=== PATIENT | female | born 1940 | race Caucasian/White ===

== ENCOUNTER 2019-02-06 12:07 | Inpatient (IN) | payer MEDICARE, MEDICAID ==
[~2019-02-06] VITALS: Ht 167.6 cm; Wt 82.6 kg
[2019-02-06] MEDS ORDERED: SOD CHLORIDE 0.9% 500 ML IV STA (12:28)
[2019-02-06] MEDS ORDERED: BISACODYL 10 MG SUPP PR ONE (12:30)
[2019-02-06] MEDS ORDERED: LACTULOSE 30ML CUP PO ONE (12:30)
[2019-02-06] MEDS ORDERED: LOSA50TA14 ORAL (14:14)
[2019-02-06] MEDS ORDERED: [UNRECOGNIZED DRUG - CODE] ORAL (14:14)
[2019-02-06] MEDS ORDERED: GABA100C14 ORAL (14:14)
[2019-02-06] MEDS ORDERED: POTA8CAP PO (14:14)
[2019-02-06] MEDS ORDERED: METO-429 ORAL (14:14)
[2019-02-06] MEDS ORDERED: CLON0.5T14 ORAL (14:14)
[2019-02-06] MEDS ORDERED: DIGO125T ORAL (14:14)
[2019-02-06] MEDS ORDERED: SAN30GM SUBDERMAL (14:14)
[2019-02-06] MEDS ORDERED: LACHYD12 SUBDERMAL (14:14)
[2019-02-06] MEDS ORDERED: MUPI22OI2 SUBDERMAL (14:14)
[2019-02-06] MEDS ORDERED: FURO40TA4 ORAL (14:14)
[2019-02-06] MEDS ORDERED: WARF3TAB ORAL (14:14)
[2019-02-06] MEDS ORDERED: GLIM2TAB ORAL (14:14)
[2019-02-06] MEDS ORDERED: ACET-141 PO (14:17)
--- NOTE | 2019-02-06 14:59 | ERD ---
ER Documentation Chief Complaint Chief Complaint HIGH BLOOD PRESSURE; BLURRY EYES; CONSTIPATED; FEELS DIZZY HPI Patient is a 78-year-old female with atrial fibrillation, coronary disease, CHF, hypertension, and diabetes who presents for dizziness. The patient was sent by the [facility] prevention center where she was being treated for a left foot ulcer. Blood pressure was elevated and she was feeling dizzy and constipated so she was sent to the ER. She feels an irregular heartbeat and does have a history of atrial fibrillation. She has blurry vision and feels dizzy. The symptoms started last night. She has no slurred speech and has had no treatment as of yet. Upon review of old medical records this is the patient's first visit to the emergency department. ROS All systems reviewed and are negative except as per history of present illness. Medications Home Meds Reported Medications Acetaminophen* (Acetaminophen*) 500 MG Extra Strength Tablet, 1000 MG PO BID PRN for PAIN, TAB 02/06/19 Clonazepam* (Clonazepam*) 0.5 Mg Tablet, 1 TAB ORAL QHS 02/06/19 Ammonium Lactate* (Lac-Hydrin* 12% (225gm)) 1 Applic Lotion, 1 APPLIC SUBDERMAL DAILY 02/06/19 Levothyroxine Sodium (Levo-T) 100 Mcg Tablet, 1 TAB ORAL DAILY 02/06/19 Losartan Potassium* (Losartan Potassium*) 50 Mg Tablet, 1 TAB ORAL DAILY 02/06/19 Gabapentin* (Gabapentin*) 100 Mg Capsule, 1 CAP ORAL DAILY 02/06/19 Warfarin Sodium (Warfarin Sodium) 3 Mg Tablet, 1 TAB ORAL DAILY 02/06/19 Glimepiride* (Glimepiride*) 2 Mg Tablet, 1 TAB ORAL DAILY 02/06/19 Mupirocin* (Bactroban*) 2% -22 Gram Oint...g., 1 APPLIC SUBDERMAL DAILY 02/06/19 Collagenase* (Santyl*) 30 Gm Oint..gm., 1 APPLIC SUBDERMAL DAILY 02/06/19 Potassium Chloride* (Potassium Chloride*) 8 Meq Capsule.er, 8 MEQ PO DAILY, CAP 02/06/19 Furosemide* (Furosemide*) 40 Mg Tablet, 1 TAB ORAL DAILY 02/06/19 Metoprolol Tartrate* (Lopressor*) 50 Mg Tab, 1 TAB ORAL DAILY 02/06/19 Digoxin* (Digitek*) 125 Mcg Tablet, 1 TAB ORAL DAILY 02/06/19 Allergies Allergies: Coded Allergies: codeine (Verified Adverse Reaction, Intermediate, ANXIETY, 02/06/19) PMhx/Soc History of Surgery: Yes (mitral & aortic valve replacement '10, LT mastectomy, appendectomy) Anesthesia Reaction: No Hx Neurological Disorder: No Hx Respiratory Disorders: No Hx Cardiac Disorders: Yes (CHF, HTN, A-FIB) Hx Psychiatric Problems: No Hx Miscellaneous Medical Probl: Yes (GERD, OA, MELANOMA) Hx Alcohol Use: No Hx Substance Use: No Hx Tobacco Use: No Smoking Status: Never smoker FmHx Family History: diabetes Physical Exam Vitals Vital Signs Date Temp Pulse Resp B/P (MAP) Pulse Ox O2 O2 Flow FiO2 Time Delivery Rate 02/06/19 98.2 88 17 149/90 97 Room Air 14:00 (109) 02/06/19 98.2 74 20 157/88 97 Room Air 12:22 (111) 02/06/19 98.2 82 20 148/83 96 12:10 (104) Physical Exam Const: No acute distress Head: Atraumatic Eyes: Normal Conjunctiva ENT: Normal External Ears, Nose and Mouth. Neck: Full range of motion. No meningismus. Resp: Clear to auscultation bilaterally Cardio: Regular rate and rhythm, no murmurs Abd: Soft, non tender, non distended. Normal bowel sounds Skin: No petechiae or rashes Back: No midline or flank tenderness Ext: No cyanosis, or edema Neur: Awake and alert Psych: Normal Mood and Affect Result Diagram: 02/06/19 1247 02/06/19 1247 Results 24 hrs Laboratory Tests Test 02/06/19 12:47 02/06/19 12:50 White Blood Count 5.2 10^3/ul Red Blood Count 3.93 10^6/ul Hemoglobin 12.1 g/dl Hematocrit 37.9 % Mean Corpuscular Volume 96.4 fl Mean Corpuscular Hemoglobin 30.8 pg Mean Corpuscular Hemoglobin Concent 31.9 g/dl Red Cell Distribution Width 12.5 % Platelet Count 169 10^3/UL Mean Platelet Volume 10.1 fl Immature Granulocytes % 0.200 % Neutrophils % 61.0 % Lymphocytes % 21.2 % Monocytes % 15.8 % Eosinophils % 1.0 % Basophils % 0.8 % Nucleated Red Blood Cells % 0.0 /100WBC Immature Granulocytes # 0.010 10^3/ul Neutrophils # 3.2 10^3/ul Lymphocytes # 1.1 10^3/ul Monocytes # 0.8 10^3/ul Eosinophils # 0.1 10^3/ul Basophils # 0.0 10^3/ul Nucleated Red Blood Cells # 0.0 10^3/ul Prothrombin Time 24.0 Sec Prothrombin Time Ratio 1.9 INR International Normalized Ratio 2.14 Activated Partial Thromboplast Time 35.7 Sec Sodium Level 138 mmol/L Potassium Level 4.4 mmol/L Chloride Level 101 mmol/L Carbon Dioxide Level 26 mmol/L Anion Gap 11 Blood Urea Nitrogen 19 mg/dl Creatinine 0.66 mg/dl Est Glomerular Filtrat Rate mL/min mL/min Glucose Level 127 mg/dl Hemoglobin A1c 6.5 % Calcium Level 9.9 mg/dl Troponin I < 0.012 ng/ml Triglycerides Level 125 mg/dl Cholesterol Level 159 mg/dl LDL Cholesterol, Calculated 91 mg/dl HDL Cholesterol 43 mg/dl Cholesterol/HDL Ratio 3.6 RATIO Bedside Glucose 125 mg/dL Current Medications Medications Dose Sig/Alfredo Start Time Status Last (Trade) Ordered Route PRN Stop Time Admin Dose Reason Admin Sodium 500 ml @ Q1H STAT 02/06/19 DC 02/06/19 Chloride 500 mls/hr IV 12:28 12:45 02/06/19 13:27 Lactulose 20 gm ONCE ONCE 02/06/19 DC 02/06/19 (Enulose) PO 12:30 12:45 02/06/19 12:31 Bisacodyl 10 mg ONCE ONCE 02/06/19 DC 02/06/19 (Dulcolax MI 12:30 12:45 Supp) 02/06/19 12:31 Ondansetron 4 mg ER BRIDGE 02/06/19 HCl (Zofran PRN IV 15:00 Inj) NAUSEA/VOMITI 02/07/19 14:59 NG 650 mg ER BRIDGE 02/06/19 Acetaminophen PRN PO 15:00 (Tylenol .MILD PAIN 02/07/19 14:59 Tab) 1-3 OR TEMP Procedures/MDM CT brain read by radiology. CT abdomen pelvis read by radiology. Chest x-ray s hows possible pericardial effusion per radiology. EKG read by me: Rate/Rhythm: Atrial fibrillation with a rate of 66 Intervals: Normal Impression: A. fib with a controlled rate and without ischemia Patient is a 78-year-old female presents with dizziness. The patient was given lactulose and Dulcolax suppository with good result for constipation. However I am concerned about her dizziness and given the fact that her chest x-ray was read by radiology as possible pericardial effusion. I doubt stroke at this time. I doubt intercranial hemorrhage or mass. The patient will be admitted to the care of Dr. Mark from the panel team to a telemetry observation bed. She will likely need echocardiogram while in the hospital to rule out per cardial effusion. Departure Diagnosis: Primary Impression: Cardiomegaly Additional Impressions: Dizziness Abdominal pain Abdominal location: generalized Qualified Codes: R10.84 - Generalized abdominal pain Constipation Constipation type: unspecified constipation type Qualified Codes: K59.00 - Constipation, unspecified Condition: MONET Ann MD Feb 06, 2019 14:59
[2019-02-06] MEDS ORDERED: ONDANSETRON 4 MG INJ IV PRN ×2 (15:00→16:00)
[2019-02-06] MEDS ORDERED: ACETAMINOPHEN 325 MG TAB PO PRN (15:00)
--- NOTE | 2019-02-06 15:53 | HP ---
Date/Time of Note Date/Time of Note DATE: 02/06/19 TIME: 15:44 Assessment/Plan VTE Prophylaxis SCD applied (from Nsg): Yes Pharmacological prophylaxis: LMWH Lines/Catheters IV Catheter Type (from Nrsg): Saline Lock Assessment/Plan Hospital Course Assessment and plan 1. Dizziness. Follow-up on echocardiogram. Carotid Doppler to be checked. CT scan showed no acute intracranial hemorrhage, transcortical infarction or mass-effect. Check orthostatic blood pressures. 2. Suspect pericardial effusion. Echocardiogram ordered. Will get chipper machine operator to follow. Of note chest x-ray did show Moderate to marked enlargement of the cardiac silhouette with a water bottle configuration. Rule out pericardial effusion. 3. A. fib. Monitor on telemetry. Continue on digoxin, warfarin, beta-naren 4. Hypertension. Will continue on antihypertensives. Adjust as needed 5. History of neuropathy. Continue Neurontin. 6. Diabetes. Continue on home regimen. Discussed POC with Dr. Koch Result Diagram: 02/06/19 1247 02/06/19 1247 Results 24hrs Laboratory Tests Test 02/06/19 12:47 02/06/19 12:50 White Blood Count 5.2 Red Blood Count 3.93 L Hemoglobin 12.1 Hematocrit 37.9 Mean Corpuscular Volume 96.4 Mean Corpuscular Hemoglobin 30.8 Mean Corpuscular Hemoglobin Concent 31.9 L Red Cell Distribution Width 12.5 Platelet Count 169 Mean Platelet Volume 10.1 Immature Granulocytes % 0.200 Neutrophils % 61.0 Lymphocytes % 21.2 Monocytes % 15.8 H Eosinophils % 1.0 Basophils % 0.8 Nucleated Red Blood Cells % 0.0 Immature Granulocytes # 0.010 Neutrophils # 3.2 Lymphocytes # 1.1 Monocytes # 0.8 Eosinophils # 0.1 Basophils # 0.0 Nucleated Red Blood Cells # 0.0 Prothrombin Time 24.0 H Prothrombin Time Ratio 1.9 INR International Normalized Ratio 2.14 Activated Partial Thromboplast Time 35.7 H Sodium Level 138 Potassium Level 4.4 Chloride Level 101 Carbon Dioxide Level 26 Anion Gap 11 Blood Urea Nitrogen 19 Creatinine 0.66 Est Glomerular Filtrat Rate mL/min Glucose Level 127 Hemoglobin A1c 6.5 H Calcium Level 9.9 Troponin I < 0.012 Triglycerides Level 125 Cholesterol Level 159 LDL Cholesterol, Calculated 91 HDL Cholesterol 43 Cholesterol/HDL Ratio 3.6 Bedside Glucose 125 HPI/ROS Admit Date/Time Admit Date/Time Hx of Present Illness This is a 78-year-old female with history of CHF, hypertension, diabetes, MVR/TVR in 2009, skin cancer, left breast cancer status post radiation 2007, who is being admitted to the hospital due to reports of dizziness and some chest palpitations. 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 She reports that when she was there she started to feel little bit dizzy. She denies any chest pain or shortness of breath. She was advised to go to the ER for further evaluation. She does report that for the past couple days prior to this admission she had been feeling "off". She reports that she had been feeling dizzy at times. She denies any other associated symptoms besides the dizziness and sometimes heart palpitations. We will evaluate her for the aformentiond issues. ROS 12 point review of systems obtained entirely negative except as mentioned in the history of present illness PMH/Family/Social Past Medical History Medical/surgical history 1. CHF 2. Hypertension 3. Audio megaly 4 prediabetes 5. MVR/TVR in 2009, 6. Skin cancer 7. Left breast cancer status post radiation in 2007 8. Gallstones Medications Current Medications Ondansetron HCl (Zofran Inj) 4 mg ER BRIDGE PRN IV NAUSEA/VOMITING; Start 02/06/19 at 15:00; Stop 02/07/19 at 14:59 Acetaminophen (Tylenol Tab) 650 mg ER BRIDGE PRN PO .MILD PAIN 1-3 OR TEMP; Start 02/06/19 at 15:00; Stop 02/07/19 at 14:59 Coded Allergies: codeine (Verified Adverse Reaction, Intermediate, ANXIETY, 02/06/19) Family History Significant Family History: other (reports stroke on father side) Social History Alcohol Use: none Smoking Status: Never smoker Drug Use: none Exam/Review of Systems Vital Signs Vitals Vital Signs Date Temp Pulse Resp B/P (MAP) Pulse Ox O2 O2 Flow FiO2 Time Delivery Rate 02/06/19 98.2 88 17 149/90 97 Room Air 14:00 (109) Exam Constitutional: alert, oriented Psych: nl mood/affect Head: normocephalic Respiratory: diminished breath sounds Cardiovascular: murmurs/extra sounds, other (afib) Gastrointestinal: soft, non-tender Musculoskeletal: swelling (ble) Neurological: WELLNESS RN II-XII intact, nl mental status, nl speech Skin: other (left foot ulcer) ROBBIE VILLARREAL NP Feb 06, 2019 15:53
[2019-02-06] MEDS ORDERED: MAGNESIUM HYDROXIDE 30ML CUP PO PRN (16:00)
[2019-02-06] MEDS ORDERED: NACL 0.9% 3 ML SYG IV SCH (16:00)
[2019-02-06] MEDS ORDERED: DEXTROSE 50% 50 ML SYRINGE IV PRN ×2 (17:00)
[2019-02-06] MEDS ORDERED: GLUCOSE GEL 15 GRAM TUBE BUCCAL PRN (17:00)
[2019-02-06] MEDS ORDERED: GLUCAGON 1 MG INJ IM PRN (17:00)
[2019-02-06] MEDS ORDERED: GLUCOSE GEL 15 GRAM TUBE PO PRN ×2 (17:00)
[2019-02-06 17:36] VITALS: Ht 167.6 cm; Wt 82.6 kg
[2019-02-06 17:48] VITALS: BP 147/76; PULSE 83; RESP 18
[2019-02-06] MEDS: ACCU-CHEK XX SCH ×2 (18:09→21:56)
[2019-02-06 19:21] VITALS: BP 124/59; PULSE 99; RESP 18
[2019-02-06] MEDS: ACETAMINOPHEN 325 MG TAB PO PRN (21:47)
[2019-02-06] MEDS: WARFARIN 3 MG TAB PO SCH (21:48)
[2019-02-06] MEDS: FAMOTIDINE 20 MG INJ IV SCH (21:48)
[2019-02-06] MEDS: METOPROLOL 50 MG TAB PO SCH (22:46)
[2019-02-06 23:00] VITALS: BP 119/59; PULSE 76; RESP 20
[2019-02-07] VITALS (9 sets, daily range): BP systolic 111–159; BP diastolic 54–82; PULSE 65–90; RESP 18–20
[2019-02-07] MEDS ORDERED: CEFTRIAXONE 1 GM/50 ML (PMX) 50 ML IVPB SCH ×2 (02:30→22:00)
[2019-02-07] MEDS: LEVOTHYROXINE 100 MCG TAB PO SCH (05:23)
[2019-02-07] MEDS: ACCU-CHEK XX SCH ×4 (07:25→21:47)
[2019-02-07] MEDS ORDERED: ENOXAPARIN 40 MG/0.4 ML SYG SC SCH (09:00)
[2019-02-07] MEDS ORDERED: METOPROLOL 50 MG TAB PO SCH (09:00)
[2019-02-07] MEDS: DIGOXIN 0.125 MG TAB PO SCH (09:10)
[2019-02-07] MEDS: METOPROLOL 50 MG TAB PO SCH ×2 (09:11→21:27)
[2019-02-07] MEDS: WARFARIN 3 MG TAB PO SCH (09:11)
[2019-02-07] MEDS: FAMOTIDINE 20 MG INJ IV SCH (09:12)
[2019-02-07] MEDS: FUROSEMIDE 40 MG TAB PO SCH (09:12)
[2019-02-07] MEDS: LOSARTAN 50 MG TAB PO SCH (09:12)
[2019-02-07] MEDS: GLIMEPIRIDE 2 MG TAB PO SCH (09:30)
--- NOTE | 2019-02-07 10:23 | RADRPT ---
Echocardiogram Report Patient Name: Manju MCGOVERN ID: [id number] : 109 (78y 10m)Study Date: 02/06/2019 3:38:06 PM Gender: FAccession #: [id number] Tech: Balwinder Staton [facility] Location: [facility] Ref.Physician: ROBBIE VILLARREAL Height(Cm): BSA: Weight(Kg): Quality: AdequateOrder Physician: ROBBIE VILLARREAL Account #: Procedures: Echocardiographic Report: Transthoracic echocardiogram with complete 2D, M-Mode, and doppler examination. Indications: R/o Pericardial Effusion. Measurements: 2D/M Mode Doppler Measurement Value Normal Range Measurement Value Normal Range LVIDd 2D 5.1 [ 3.8 - 5.2 ] cm AV Mean Sami 2.2 [ 70.0 - 90.0 ] cm/sec LVIDs 2D 3.3 [ 2.2 - 3.5 ] cm AV Mean PG 23.0 [ 2.0 - 4.0 ] mmHg LVPWd 2D 1.1 [ 0.6 - 0.9 ] cm AV VTI 76.0 cm IVSd 2D 1.1 [ 0.6 - 0.9 ] cm LVOT Peak Sami 1.0 [ 70.0 - 110.0 ] cm/sec AoR Diam 2D 3.1 [ 2.3 - 3.1 ] cm LVOT Peak PG 4.0 [ 2.0 - 6.0 ] mmHg EDV 2D 123.0 [ 46.0 - 106.0 ] ml MV E Peak Sami 2.1 [ 60.0 - 130.0 ] cm/sec ESV 2D 44.1 [ 14.0 - 42.0 ] ml MV Peak Sami 2.3 [ 60.0 - 130.0 ] cm/sec EF 2D 64.1 [ 54.0 - 74.0 ] percent MV Peak PG 22.0 [ 1.0 - 10.0 ] mmHg LA Dimen 2D 5.4 [ 2.7 - 3.8 ] cm MV Mean Sami 1.0 cm/sec MV Mean PG 6.0 mmHg MV Decel Time 310 [ 104 - 258 ] msec MV VTI 52.8 cm TR Peak Sami 3.5 [ 100.0 - 280.0 ] cm/sec TR Peak PG 50.0 mmHg Findings: Left Ventricle: Normal left ventricular systolic function. Normal left ventricular cavity size. Normal left ventricular wall thickness. Ejection fraction is visually estimated at 55 %. Right Ventricle: Moderate enlargement of right ventricle. Mild right ventricular hypokinesis. Left Atrium: There is severe enlargement of left atrium. Right Atrium: There is severe enlargement of right atrium. Mitral Valve: Mitral Valve Bio Prosthesis. Mitral valve Max Velocity 2.32 m/sec. MaxPG 22.00 mmHg. MeanPG 6.00 mmHg. Aortic Valve: Aortic Valve Bio Prosthesis. Moderate aortic stenosis. Aortic valve Max velocity 3.54 m/sec. Max PG 50.20 mmHg. Tricuspid Valve: The estimated Peak RVSP is 64 mmHg. There is severe tricuspid regurgitation. Pericardium: Normal pericardium with no significant pericardial effusion. Left pleural effusion seen. Aorta: Normal aortic root. IVC: Dilated IVC with poor respiratory collapse consistent with elevated right atrial pressure. Conclusions: Normal left ventricular systolic function. Normal left ventricular cavity size. Normal left ventricular wall thickness. Ejection fraction is visually estimated at 55 %. Moderate enlargement of right ventricle. Mild right ventricular hypokinesis. Mitral Valve Bio Prosthesis. Mitral valve Max Velocity 2.32 m/sec. MaxPG 22.00 mmHg. MeanPG 6.00 mmHg. Aortic Valve Bio Prosthesis. Moderate aortic stenosis. Aortic valve Max velocity 3.54 m/sec. Max PG 50.20 mmHg. Severe tricuspid regurgitation. Left and right atria are extremely large. Moderate pulmonary hypertension with estimated Peak RVSP 64 mmHg based on RA pressure of 15 mmHg. Electronically Signed By: Alden Sánchez 2019-02-07 10:22:41 PDT
--- NOTE | 2019-02-07 12:10 | CONS ---
Assessment/Plan Assessment/Plan Hospital Course (Demo Recall) Dizziness: By history, orthostatic. No renal dysfunction to suggest dehydration. Her exam is difficult as she has severe TR and RV dysfunction so JVP will always be elevated. 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 Severe TR Chronic afib on coumadin chronic diastolic/valvular CHF pulmonary hypertension HTN DM liver cirrhosis: ?from TR/right heart failure -check orthostatics -PT -monitor on tele one more day -home meds including: -coumadin, goal INR 2-3 losartan 50mg -lasix 40mg -digoxin 125mcg -metoprolol 50mg BID Consultation Date/Type/Reason Admit Date/Time Date of Consultation: Feb 07, 2019 Type of Consult Cardiology Reason for Consultation Cardiomegaly on CXR concerning for pericardial effusion and complex cardiac history Requesting Provider: ROBBIE VILLARREAL NP Date/Time of Note DATE: 02/07/19 TIME: 11:58 Hx of Present Illness 78 yo F with a h/o bioprosthetic MVR/AVR 2009, chronic afib on coumadin, chronic diastolic/valvular CHF, pulmonary hypertension, HTN, DM, liver cirrhosis, who presented from wound clinic due to dizziness. She is being treated for a left leg wound. She had mentioned that she has dizziness and she was asked to come in for evaluation. In the ED she was noted to have a large globular heart on CXR concerning for pericardial effusion for which cardiology was consulted. She notes that she has been having episodes of dizziness the past few days which occur only if she stands up to go to the restroom but never at rest or with activity. She does not get dizzy every time she stands up however. Otherwise she notes her BP has been higher than usual in the 140s. No chest pain or SOB. No syncope. She follows up with a marshmallow machine worker in [place] usually. per hPI Past Medical History per hPI Home Meds Reported Medications Acetaminophen* (Acetaminophen*) 500 MG Extra Strength Tablet, 1000 MG PO BID PRN for PAIN, TAB 02/06/19 Clonazepam* (Clonazepam*) 0.5 Mg Tablet, 1 TAB ORAL QHS 02/06/19 Ammonium Lactate* (Lac-Hydrin* 12% (225gm)) 1 Applic Lotion, 1 APPLIC SUBDERMAL DAILY 02/06/19 Levothyroxine Sodium (Levo-T) 100 Mcg Tablet, 1 TAB ORAL DAILY 02/06/19 Losartan Potassium* (Losartan Potassium*) 50 Mg Tablet, 1 TAB ORAL DAILY 02/06/19 Gabapentin* (Gabapentin*) 100 Mg Capsule, 1 CAP ORAL DAILY 02/06/19 Warfarin Sodium (Warfarin Sodium) 3 Mg Tablet, 1 TAB ORAL DAILY 02/06/19 Glimepiride* (Glimepiride*) 2 Mg Tablet, 1 TAB ORAL DAILY 02/06/19 Mupirocin* (Bactroban*) 2% -22 Gram Oint...g., 1 APPLIC SUBDERMAL DAILY 02/06/19 Collagenase* (Santyl*) 30 Gm Oint..gm., 1 APPLIC SUBDERMAL DAILY 02/06/19 Potassium Chloride* (Potassium Chloride*) 8 Meq Capsule.er, 8 MEQ PO DAILY, CAP 02/06/19 Furosemide* (Furosemide*) 40 Mg Tablet, 1 TAB ORAL DAILY 02/06/19 Metoprolol Tartrate* (Lopressor*) 50 Mg Tab, 1 TAB ORAL DAILY 02/06/19 Digoxin* (Digitek*) 125 Mcg Tablet, 1 TAB ORAL DAILY 02/06/19 Medications Current Medications Ondansetron HCl (Zofran Inj) 4 mg ER BRIDGE PRN IV NAUSEA/VOMITING; Start 02/06/19 at 15:00; Stop 02/07/19 at 14:59 IV Flush (NS 3 ml) 3 ml PER PROTOCOL IV ; Start 02/06/19 at 16:00 Ondansetron HCl (Zofran Inj) 4 mg Q6H PRN IV NAUSEA/VOMITING; Start 02/06/19 at 16:00 Acetaminophen (Tylenol Tab) 650 mg Q6H PRN PO .PAIN 1-3 OR TEMP Last administe red on 02/06/19at 21:47; Admin Dose 650 MG; Start 02/06/19 at 16:00 Magnesium Hydroxide (Milk Of Mag) 30 ml DAILY PRN PO .CONSTIPATION; Start 02/06/19 at 16:00 Famotidine (Pepcid Iv) 20 mg Q12 IV Last administered on 02/07/19at 09:12; Admin Dose 20 MG; Start 02/06/19 at 21:00 Enoxaparin Sodium (Lovenox) 40 mg DAILY SC Last administered on 02/07/19 09:28; Admin Dose 40 MG; Start 02/07/19 at 09:00 Warfarin Sodium (Coumadin) 3 mg DAILY PO Last administered on 02/07/19 09:11; Admin Dose 3 MG; Start 02/06/19 at 16:00 Furosemide (Lasix) 40 mg DAILY PO Last administered on 02/07/19 09:12; Admin Dose 40 MG; Start 02/07/19 at 09:00 Glimepiride (Amaryl) 2 mg DAILY PO Last administered on 02/07/19 09:30; Admin Dose 2 MG; Start 02/07/19 at 09:00 Diagnostic Test (Pha) (Accu-Chek) 1 ea AC MEALS AND BEDTIME XX Last administered on 02/07/19 07:25; Admin Dose 1 EA; Start 02/06/19 at 17:25 Digoxin (Digoxin) 0.125 mg DAILY PO Last administered on 02/07/19 09:10; Admin Dose 0.125 MG; Start 02/07/19 at 09:00 Levothyroxine Sodium (Synthroid) 100 mcg DAILY@06 PO Last administered on 02/07/19 05:23; Admin Dose 100 MCG; Start 02/07/19 at 06:00 Losartan Potassium (Cozaar) 50 mg DAILY PO Last administered on 02/07/19 09:12; Admin Dose 50 MG; Start 02/07/19 at 09:00 Miscellaneous Information 1 ea NOTE XX ; Start 02/06/19 at 17:00 Glucose (Glutose) 15 gm Q15M PRN PO DECREASED GLUCOSE; Start 02/06/19 at 17:00 Glucose (Glutose) 22.5 gm Q15M PRN PO DECREASED GLUCOSE; Start 02/06/19 at 17: 00 Dextrose (D50w Syringe) 25 ml Q15M PRN IV DECREASED GLUCOSE; Start 02/06/19 at 17:00 Dextrose (D50w Syringe) 50 ml Q15M PRN IV DECREASED GLUCOSE; Start 02/06/19 at 17:00 Glucagon (Glucagen) 1 mg Q15M PRN IM DECREASED GLUCOSE; Start 02/06/19 at 17:00 Glucose (Glutose) 15 gm Q15M PRN BUCCAL DECREASED GLUCOSE; Start 02/06/19 at 17:00 Metoprolol Tartrate (Lopressor) 50 mg BID PO Last administered on 02/07/19at 09:11; Admin Dose 50 MG; Start 02/06/19 at 22:30 Ceftriaxone Sodium 50 ml @ 100 mls/hr Q24H IVPB Last administered on 02/07/19at 02:43; Admin Dose 100 MLS/HR; Start 02/07/19 at 02:30 Allergies: Coded Allergies: codeine (Verified Adverse Reaction, Intermediate, ANXIETY, 02/06/19) Social History Alcohol Use: none Smoking Status: Never smoker Drug Use: none Exam/Review of Systems Vital Signs Vitals Vital Signs Date Temp Pulse Resp B/P (MAP) Pulse Ox O2 O2 Flow FiO2 Time Delivery Rate 02/07/19 97.9 75 20 142/70 94 Room Air 11:02 (94) Intake and Output 02/06/19 02/06/19 02/07/19 1515:00 23:00 07:00 IntakeIntake Total 500 ml 150 ml OutputOutput Total 350 ml BalanceBalance 500 ml 150 ml -350 ml Exam Constitutional: alert, oriented Psych: no complaints, nl mood/affect Head: normocephalic, atraumatic Neck: jvd (large V wave) Respiratory: clear to auscultation; No crackles/rales Cardiovascular: edema (trace), systolic murmur (3/6 mid-late peaking INDERJIT); No regular rate and rhythm (IRIR) Gastrointestinal: soft, non-tender; No distended Musculoskeletal: No nl extremities to inspection Neurological: nl mental status, nl speech Labs Result Diagram: 02/07/1925 02/07/19 0525 Results 24hrs Laboratory Tests Test 02/06/19 12:47 02/06/19 12:50 02/06/19 17:48 02/06/19 21:46 White Blood Count 5.2 Red Blood Count 3.93 L Hemoglobin 12.1 Hematocrit 37.9 Mean Corpuscular 96.4 Volume Mean Corpuscular 30.8 Hemoglobin Mean Corpuscular 31.9 L Hemoglobin Concen t Red Cell 12.5 Distribution Width Platelet Count 169 Mean Platelet 10.1 Volume Immature 0.200 Granulocytes % Neutrophils % 61.0 Lymphocytes % 21.2 Monocytes % 15.8 H Eosinophils % 1.0 Basophils % 0.8 Nucleated Red 0.0 Blood Cells % Immature 0.010 Granulocytes # Neutrophils # 3.2 Lymphocytes # 1.1 Monocytes # 0.8 Eosinophils # 0.1 Basophils # 0.0 Nucleated Red 0.0 Blood Cells # Prothrombin Time 24.0 H Prothrombin Time 1.9 Ratio INR International 2.14 Normalized Ratio Activated 35.7 H Partial Thrombopl ast Time Sodium Level 138 Potassium Level 4.4 Chloride Level 101 Carbon Dioxide 26 Level Anion Gap 11 Blood Urea 19 Nitrogen Creatinine 0.66 Est Glomerular Filtrat Rate mL/min Glucose Level 127 Hemoglobin A1c 6.5 H Calcium Level 9.9 Troponin I < 0.012 B-Type 321 Natriuretic Peptide Triglycerides 125 Level Cholesterol Level 159 LDL Cholesterol, 91 Calculated HDL Cholesterol 43 Cholesterol/HDL 3.6 Ratio Bedside Glucose 125 103 139 Test 02/07/19 00:50 02/07/19 05:25 02/07/19 08:10 Urine Color YELLOW Urine Clarity SLIGHTLY CLOUDY A Urine pH 7.0 Urine Specific 1.013 [place] Urine Ketones NEGATIVE Urine Nitrite POSITIVE A Urine Bilirubin NEGATIVE Urine NEGATIVE Urobilinogen Urine Leukocyte 3+ H Esterase Urine Microscopic 0 RBC Urine Microscopic 47 H WBC Urine Bacteria FEW A Urine Hemoglobin 2+ H Urine Glucose NEGATIVE Urine Total NEGATIVE Protein Urine Opiates Negative Screen Urine Negative Barbiturates Urine Negative Amphetamines Screen Urine Negative Benzodiazepines Screen Urine Cocaine Negative Screen Urine Negative Cannabinoids White Blood Count 4.9 Red Blood Count 3.48 L Hemoglobin 10.8 L Hematocrit 33.9 L Mean Corpuscular 97.4 Volume Mean Corpuscular 31.0 Hemoglobin Mean Corpuscular 31.9 L Hemoglobin Concen t Red Cell 12.7 Distribution Width Platelet Count 146 Mean Platelet 10.1 Volume Immature 0.400 Granulocytes % Neutrophils % 58.9 Lymphocytes % 23.2 Monocytes % 14.7 H Eosinophils % 2.2 Basophils % 0.6 Nucleated Red 0.0 Blood Cells % Immature 0.020 Granulocytes # Neutrophils # 2.9 Lymphocytes # 1.1 Monocytes # 0.7 Eosinophils # 0.1 Basophils # 0.0 Nucleated Red 0.0 Blood Cells # Sodium Level 138 Potassium Level 4.2 Chloride Level 105 Carbon Dioxide 24 Level Anion Gap 9 Blood Urea 16 Nitrogen Creatinine 0.63 Est Glomerular Filtrat Rate mL/min Glucose Level 142 Hemoglobin A1c 6.4 H Calcium Level 9.3 Phosphorus Level 3.4 Magnesium Level 2.2 Total Bilirubin 0.6 Direct Bilirubin 0.00 Indirect 0.6 Bilirubin Aspartate Amino 25 Transf (AST/SGOT) Alanine 17 Aminotransferase (ALT/SGPT) Alkaline 56 Phosphatase Total Protein 7.3 Albumin 3.8 Globulin 3.50 H Albumin/Globulin 1.08 Ratio Triglycerides 119 Level Cholesterol Level 137 LDL Cholesterol, 80 Calculated HDL Cholesterol 33 # Cholesterol/HDL 4.1 Ratio Thyroid 5.210 H Stimulating Hormone (TSH) Free Thyroxine 2.87 Index Thyroxine (T4) 8.5 Triiodothyronine 33.8 (T3) Uptake Bedside Glucose 147 Medications Medications Current Medications Ondansetron HCl (Zofran Inj) 4 mg ER BRIDGE PRN IV NAUSEA/VOMITING; Start 02/06/19 at 15:00; Stop 02/07/19 at 14:59 IV Flush (NS 3 ml) 3 ml PER PROTOCOL IV ; Start 02/06/19 at 16:00 Ondansetron HCl (Zofran Inj) 4 mg Q6H PRN IV NAUSEA/VOMITING; Start 02/06/19 at 16:00 Acetaminophen (Tylenol Tab) 650 mg Q6H PRN PO .PAIN 1-3 OR TEMP Last administered on 02/06/19at 21:47; Admin Dose 650 MG; Start 02/06/19 at 16:00 Magnesium Hydroxide (Milk Of Mag) 30 ml DAILY PRN PO .CONSTIPATION; Start 02/06/19 at 16:00 Famotidine (Pepcid Iv) 20 mg Q12 IV Last administered on 02/07/19 09:12; Admin Dose 20 MG; Start 02/06/19 at 21:00 Enoxaparin Sodium (Lovenox) 40 mg DAILY SC Last administered on 02/07/19 09:28; Admin Dose 40 MG; Start 02/07/19 at 09:00 Warfarin Sodium (Coumadin) 3 mg DAILY PO Last administered on 02/07/19 09:11; Admin Dose 3 MG; Start 02/06/19 at 16:00 Furosemide (Lasix) 40 mg DAILY PO Last administered on 02/07/19 09:12; Admin Dose 40 MG; Start 02/07/19 at 09:00 Glimepiride (Amaryl) 2 mg DAILY PO Last administered on 02/07/19 09:30; Admin Dose 2 MG; Start 02/07/19 at 09:00 Diagnostic Test (Pha) (Accu-Chek) 1 ea AC MEALS AND BEDTIME XX Last administered on 02/07/19 07:25; Admin Dose 1 EA; Start 02/06/19 at 17:25 Digoxin (Digoxin) 0.125 mg DAILY PO Last administered on 02/07/19 09:10; Admin Dose 0.125 MG; Start 02/07/19 at 09:00 Levothyroxine Sodium (Synthroid) 100 mcg DAILY@06 PO Last administered on 02/07/19 05:23; Admin Dose 100 MCG; Start 02/07/19 at 06:00 Losartan Potassium (Cozaar) 50 mg DAILY PO Last administered on 02/07/19 09:12; Admin Dose 50 MG; Start 02/07/19 at 09:00 Miscellaneous Information 1 ea NOTE XX ; Start 02/06/19 at 17:00 Glucose (Glutose) 15 gm Q15M PRN PO DECREASED GLUCOSE; Start 02/06/19 at 17:00 Glucose (Glutose) 22.5 gm Q15M PRN PO DECREASED GLUCOSE; Start 02/06/19 at 17:00 Dextrose (D50w Syringe) 25 ml Q15M PRN IV DECREASED GLUCOSE; Start 02/06/19 at 17:00 Dextrose (D50w Syringe) 50 ml Q15M PRN IV DECREASED GLUCOSE; Start 02/06/19 at 17:00 Glucagon (Glucagen) 1 mg Q15M PRN IM DECREASED GLUCOSE; Start 02/06/19 at 17:00 Glucose (Glutose) 15 gm Q15M PRN BUCCAL DECREASED GLUCOSE; Start 02/06/19 at 17:00 Metoprolol Tartrate (Lopressor) 50 mg BID PO Last administered on 02/07/19 09:11; Admin Dose 50 MG; Start 02/06/19 at 22:30 Ceftriaxone Sodium 50 ml @ 100 mls/hr Q24H IVPB Last administered on 02/07/19 02:43; Admin Dose 100 MLS/HR; Start 02/07/19 at 02:30 LEONOR NAIDU Feb 07, 2019 12:10
--- NOTE | 2019-02-07 16:03 | PN ---
Date/Time of Note Date/Time of Note DATE: 02/07/19 TIME: 16:03 Assessment/Plan VTE Prophylaxis Risk score (from [facility] [place])>0 risk: 7 SCD applied (from Ns): Yes Pharmacological prophylaxis: LMWH Lines/Catheters IV [facility]ter [facility]from [facility] [place]ine Lock Assessment/Plan Hospital Course Assessment and plan 1. Dizziness. echocardiogram: Normal left ventricular wall thickness. Ejection fraction is vis ually estimated at 55 %. Moderate enlargement of right ventricle. Mild right ventricular hypokinesis. Severe tricuspid regurgitation. Moderate pulmonary hypertension with estimated Peak RVSP 64 mmHg Carotid Doppler to with no significant stenosis CT scan showed no acute intracranial hemorrhage, transcortical infarction or mass-effect. f/u orthostatic blood pressures. 2. Suspect pericardial effusion. Of note chest x-ray did show Moderate to marked enlargement of the cardiac si lhouette with a water bottle configuration. Echo done with no notable pericardial effusion. 3. A. fib. Monitor on telemetry. Continue on digoxin, warfarin, beta-naren 4. Hypertension. Will continue on antihypertensives. Adjust as needed 5. History of neuropathy. Continue Neurontin. 6. Diabetes. Continue on home regimen. DISPO/PLAN: f/u orthostatic blood pressures. Continue PT. anticipate d/c within the next 24 hours if medically stable Discussed POC with Dr. Koch Result Diagram: 02/07/19 0525 02/07/19 0525 Results 24hrs Laboratory Tests Test 02/06/19 17:48 02/06/19 21:46 02/07/19 00:50 02/07/19 05:25 Bedside Glucose 103 139 Urine Color YELLOW Urine Clarity SLIGHTLY CLOUDY A Urine pH 7.0 Urine Specific 1.013 [place] Urine Ketones NEGATIVE Urine Nitrite POSITIVE A Urine Bilirubin NEGATIVE Urine NEGATIVE Urobilinogen Urine Leukocyte 3+ H Esterase Urine Microscopic 0 RBC Urine Microscopic 47 H WBC Urine Bacteria FEW A Urine Hemoglobin 2+ H Urine Glucose NEGATIVE Urine Total NEGATIVE Protein Urine Opiates Negative Screen Urine Negative Barbiturates Urine Negative Amphetamines Screen Urine Negative Benzodiazepines Screen Urine Cocaine Negative Screen Urine Negative Cannabinoids White Blood Count 4.9 Red Blood Count 3.48 L Hemoglobin 10.8 L Hematocrit 33.9 L Mean Corpuscular 97.4 Volume Mean Corpuscular 31.0 Hemoglobin Mean Corpuscular 31.9 L Hemoglobin Concen t Red Cell 12.7 Distribution Width Platelet Count 146 Mean Platelet 10.1 Volume Immature 0.400 Granulocytes % Neutrophils % 58.9 Lymphocytes % 23.2 Monocytes % 14.7 H Eosinophils % 2.2 Basophils % 0.6 Nucleated Red 0.0 Blood Cells % Immature 0.020 Granulocytes # Neutrophils # 2.9 Lymphocytes # 1.1 Monocytes # 0.7 Eosinophils # 0.1 Basophils # 0.0 Nucleated Red 0.0 Blood Cells # Sodium Level 138 Potassium Level 4.2 Chloride Level 105 Carbon Dioxide 24 Level Anion Gap 9 Blood Urea 16 Nitrogen Creatinine 0.63 Est Glomerular Filtrat Rate mL/min Glucose Level 142 Hemoglobin A1c 6.4 H Calcium Level 9.3 Phosphorus Level 3.4 Magnesium Level 2.2 Total Bilirubin 0.6 Direct Bilirubin 0.00 Indirect 0.6 Bilirubin Aspartate Amino 25 Transf (AST/SGOT) Alanine 17 Aminotransferase (ALT/SGPT) Alkaline 56 Phosphatase Total Protein 7.3 Albumin 3.8 Globulin 3.50 H Albumin/Globulin 1.08 Ratio Triglycerides 119 Level Cholesterol Level 137 LDL Cholesterol, 80 Calculated HDL Cholesterol 33 # Cholesterol/HDL 4.1 Ratio Thyroid 5.210 H Stimulating Hormone (TSH) Free Thyroxine 2.87 Index Thyroxine (T4) 8.5 Triiodothyronine 33.8 (T3) Uptake Test 02/07/19 08:10 02/07/19 12:27 Bedside Glucose 147 135 Subjective 24 Hr Interval Summary Free Text/Dictation patient seen in the morning with family at bedside. no reports of dizziness during visit. Exam/Review of Systems Exam Vitals Vital Signs Date Temp Pulse Resp B/P (MAP) Pulse Ox O2 O2 Flow FiO2 Time Delivery Rate 02/07/19 97.9 65 20 111/55 94 Room Air 15:32 (73) Intake and Output 02/06/19 02/06/19 02/07/19 1515:00 23:00 07:00 IntakeIntake Total 500 ml 150 ml OutputOutput Total 350 ml BalanceBalance 500 ml 150 ml -350 ml Exam Constitutional: alert, oriented Psych: nl mood/affect Head: normocephalic Respiratory: diminished breath sounds Cardiovascular: murmurs/extra sounds, other (afib) Gastrointestinal: soft, non-tender Musculoskeletal: swelling (ble) Neurological: ADDICTIONS COUNSELOR ASSISTANT II-XII intact, nl mental status, nl speech Skin: other (left foot ulcer) Results Results 24hrs Laboratory Tests Test 02/06/19 17:48 02/06/19 21:46 02/07/19 00:50 02/07/19 05:25 Bedside Glucose 103 139 Urine Color YELLOW Urine Clarity SLIGHTLY CLOUDY A Urine pH 7.0 Urine Specific 1.013 [place] Urine Ketones NEGATIVE Urine Nitrite POSITIVE A Urine Bilirubin NEGATIVE Urine NEGATIVE Urobilinogen Urine Leukocyte 3+ H Esterase Urine Microscopic 0 RBC Urine Microscopic 47 H WBC Urine Bacteria FEW A Urine Hemoglobin 2+ H Urine Glucose NEGATIVE Urine Total NEGATIVE Protein Urine Opiates Negative Screen Urine Negative Barbiturates Urine Negative Amphetamines Screen Urine Negative Benzodiazepines Screen Urine Cocaine Negative Screen Urine Negative Cannabinoids White Blood Count 4.9 Red Blood Count 3.48 L Hemoglobin 10.8 L Hematocrit 33.9 L Mean Corpuscular 97.4 Volume Mean Corpuscular 31.0 Hemoglobin Mean Corpuscular 31.9 L Hemoglobin Concen t Red Cell 12.7 Distribution Width Platelet Count 146 Mean Platelet 10.1 Volume Immature 0.400 Granulocytes % Neutrophils % 58.9 Lymphocytes % 23.2 Monocytes % 14.7 H Eosinophils % 2.2 Basophils % 0.6 Nucleated Red 0.0 Blood Cells % Immature 0.020 Granulocytes # Neutrophils # 2.9 Lymphocytes # 1.1 Monocytes # 0.7 Eosinophils # 0.1 Basophils # 0.0 Nucleated Red 0.0 Blood Cells # Sodium Level 138 Potassium Level 4.2 Chloride Level 105 Carbon Dioxide 24 Level Anion Gap 9 Blood Urea 16 Nitrogen Creatinine 0.63 Est Glomerular Filtrat Rate mL/min Glucose Level 142 Hemoglobin A1c 6.4 H Calcium Level 9.3 Phosphorus Level 3.4 Magnesium Level 2.2 Total Bilirubin 0.6 Direct Bilirubin 0.00 Indirect 0.6 Bilirubin Aspartate Amino 25 Transf (AST/SGOT) Alanine 17 Aminotransferase (ALT/SGPT) Alkaline 56 Phosphatase Total Protein 7.3 Albumin 3.8 Globulin 3.50 H Albumin/Globulin 1.08 Ratio Triglycerides 119 Level Cholesterol Level 137 LDL Cholesterol, 80 Calculated HDL Cholesterol 33 # Cholesterol/HDL 4.1 Ratio Thyroid 5.210 H Stimulating Hormone (TSH) Free Thyroxine 2.87 Index Thyroxine (T4) 8.5 Triiodothyronine 33.8 (T3) Uptake Test 02/07/19 08:10 02/07/19 12:27 Bedside Glucose 147 135 Medications Medication Current Medications IV Flush (NS 3 ml) 3 ml PER PROTOCOL IV ; Start 02/06/19 at 16:00 Ondansetron HCl (Zofran Inj) 4 mg Q6H PRN IV NAUSEA/VOMITING; Start 02/06/19 at 16:00 Acetaminophen (Tylenol Tab) 650 mg Q6H PRN PO .PAIN 1-3 OR TEMP Last administered on 02/06/19at 21:47; Admin Dose 650 MG; Start 02/06/19 at 16:00 Magnesium Hydroxide (Milk Of Mag) 30 ml DAILY PRN PO .CONSTIPATION; Start 02/06/19 at 16:00 Famotidine (Pepcid Iv) 20 mg Q12 IV Last administered on 02/07/19 09:12; Admin Dose 20 MG; Start 02/06/19 at 21:00 Furosemide (Lasix) 40 mg DAILY PO Last administered on 02/07/19 09:12; Admin Dose 40 MG; Start 02/07/19 at 09:00 Glimepiride (Amaryl) 2 mg DAILY PO Last administered on 02/07/19 09:30; Admin Dose 2 MG; Start 02/07/19 at 09:00 Diagnostic Test (Pha) (Accu-Chek) 1 ea AC MEALS AND BEDTIME XX Last administered on 02/07/19 11:20; Admin Dose 1 EA; Start 02/06/19 at 17:25 Digoxin (Digoxin) 0.125 mg DAILY PO Last administered on 02/07/19 09:10; Admin Dose 0.125 MG; Start 02/07/19 at 09:00 Levothyroxine Sodium (Synthroid) 100 mcg DAILY@06 PO Last administered on 02/07/19 05:23; Admin Dose 100 MCG; Start 02/07/19 at 06:00 Losartan Potassium (Cozaar) 50 mg DAILY PO Last administered on 02/07/19 09:12; Admin Dose 50 MG; Start 02/07/19 at 09:00 Miscellaneous Information 1 ea NOTE XX ; Start 02/06/19 at 17:00 Glucose (Glutose) 15 gm Q15M PRN PO DECREASED GLUCOSE; Start 02/06/19 at 17:00 Glucose (Glutose) 22.5 gm Q15M PRN PO DECREASED GLUCOSE; Start 02/06/19 at 17:00 Dextrose (D50w Syringe) 25 ml Q15M PRN IV DECREASED GLUCOSE; Start 02/06/19 at 17:00 Dextrose (D50w Syringe) 50 ml Q15M PRN IV DECREASED GLUCOSE; Start 02/06/19 at 17:00 Glucagon (Glucagen) 1 mg Q15M PRN IM DECREASED GLUCOSE; Start 02/06/19 at 17:00 Glucose (Glutose) 15 gm Q15M PRN BUCCAL DECREASED GLUCOSE; Start 02/06/19 at 17:00 Metoprolol Tartrate (Lopressor) 50 mg BID PO Last administered on 02/07/19at 09:11; Admin Dose 50 MG; Start 02/06/19 at 22:30 Ceftriaxone Sodium 50 ml @ 100 mls/hr Q24H IVPB Last administered on 02/07/19at 02:43; Admin Dose 100 MLS/HR; Start 02/07/19 at 02:30 Warfarin Sodium (Coumadin) 3 mg DAILY@1700 PO ; Start 02/08/19 at 17:00 ROBBIE VILLARREAL NP Feb 07, 2019 16:03
--- NOTE | 2019-02-07 17:04 | QN ---
Documentation Comment As Physician Advisor I have reviewed the chart and have determined that as of today, this patient continues to receive medically necessary care required for the diagnosis and treatment of illness or injury. There has been no unreasonable delay in the rendering of medically necessary services, and this medically necessary care requires a length of stay expected to be greater than two midnights. Additional information gained during the stay now suggests this patient should have been classified as an inpatient at the time of admission, and I will change the status to inpatient to reflect that medical judgment. Besides the notes from the medical providers, the following information was used in this determination: Complex cardiac disease with dizziness and probable orthostasis requiring further monitoring. UTI receiving IV antibiotics. Please call me at [phone] with questions. SHANITA MAZARIEGOS MD Feb 07, 2019 17:04
[2019-02-07] MEDS: ACETAMINOPHEN 325 MG TAB PO PRN (21:27)
[2019-02-07] MEDS: FAMOTIDINE 20 MG TAB PO SCH (21:27)
[2019-02-08 03:56] VITALS: BP 122/60; PULSE 66; RESP 20
[2019-02-08] MEDS: LEVOTHYROXINE 100 MCG TAB PO SCH (05:53)
[2019-02-08 07:51] VITALS: BP 137/75; PULSE 88; RESP 20
[2019-02-08] MEDS: ACCU-CHEK XX SCH ×2 (08:22→12:13)
[2019-02-08] MEDS: METOPROLOL 50 MG TAB PO SCH (08:25)
[2019-02-08] MEDS: FUROSEMIDE 40 MG TAB PO SCH (08:26)
[2019-02-08] MEDS: GLIMEPIRIDE 2 MG TAB PO SCH (08:26)
[2019-02-08] MEDS: DIGOXIN 0.125 MG TAB PO SCH (08:27)
[2019-02-08] MEDS: FAMOTIDINE 20 MG TAB PO SCH (08:27)
[2019-02-08] MEDS: LOSARTAN 50 MG TAB PO SCH (08:27)
[2019-02-08 11:34] VITALS: BP 156/72; PULSE 74; RESP 20
[2019-02-08] MEDS ORDERED: DIGO125T PO (11:35)
[2019-02-08] MEDS ORDERED: FURO40TA4 ORAL (11:35)
[2019-02-08] MEDS ORDERED: METO-429 PO (11:35)
[2019-02-08] MEDS ORDERED: SACC250C PO (11:35)
[2019-02-08] MEDS ORDERED: CIPR500T4 PO (11:35)
[2019-02-08] MEDS ORDERED: LOSA50TA2 PO (11:35)
--- NOTE | 2019-02-08 11:37 | PDOCDIS ---
Discharge Instructions DIAGNOSIS Discharge Diagnosis 1. Dizziness. 2. Suspect pericardial effusion. 3. A. fib. 4. Hypertension. 5. History of neuropathy. 6. Diabetes. CONDITION [id number] Patient Condition: [id number] Stable HOME CARE INSTRUCTIONS: [id number] Diet Instructions: [id number] Low Fat /Cholesterol FOLLOW UP/APPOINTMENTS Follow-up Plan 1. Follow up with Dr.Alex Wills in one week 2. Follow up with your lumber checker in one week. If you are not able to follow up with your lumber checker, follow up with Dr. Alden Sánchez in one week Office Address [address] [place] [address]. [address] [place] [address] Office ROBBIE VILLARREAL NP Feb 08, 2019 11:37
[2019-02-08 13:20] VITALS: BP 138/63; PULSE 77
[2019-02-08] MEDS ORDERED: WARFARIN 3 MG TAB PO SCH (17:00)
--- NOTE | 2019-02-13 12:22 | DS ---
Date/Time of Note Date/Time of Note DATE: 02/13/19 TIME: 11:52 Discharge Summary Admission/Discharge Info Admit Date/Time Feb 07, 2019 at 17:01 Discharge Date/Time Feb 08, 2019 at 15:29 Discharge Diagnosis 1. Dizziness. 2. Suspect pericardial effusion. 3. A. fib. 4. Hypertension. 5. History of neuropathy. 6. Diabetes. Patient Condition: Stable Hospital Course This is a 78-year-old female with history of CHF, hypertension, diabetes, MVR/TVR in 2009, skin cancer, left breast cancer status post radiation 2007, who is being admitted to the hospital due to reports of dizziness and some chest palpitations. Patient did report that she was [facility] to see her commission specialist to be treated for her left foot ulcer. She reports that when she was there she started to feel little bit dizzy. She denies any chest pain or shortness of breath. She was advised to go to the ER for further evaluation. She does report that for the past couple days prior to this admission she had been feeling "off". She reports that she had been feeling dizzy at times. She denies any other associated symptoms besides the dizziness and sometimes heart palpitations. Patient was seen by vp public relations. She did undergo echocardiogram that did show to have an EF of 55%. She was noted with moderate enlargement of right ventricle and mild right ventricular hypokinesis. There is also seen severe tricuspid regurgitation. There is also moderate pulmonary hypertension with estimated peak RVSP at 64 mmHg. Carotid Doppler showed no significant stenosis. CT scan of the brain showed no acute intracranial hemorrhage or transcortical infarction or mass-effect. She was optimized with her cardiovascular medications. We did defer diuretics per vp public relations. She was otherwise optimized medically with digoxin warfarin and beta-naren for her history of A. fib. We did monitor on telemetry monitoring. She was also provided with antihypertensives for High blood pressure. She was resumed on Neurontin for her neuropathy. She was noted to take clonazepam at home regularly. We did advise her to only use it as needed. Suspect that this may have contributed to her dizziness. During the course of stay she did improve. She did report resolution of dizziness and was able to ambulate well. She was also resumed on her antidiabetic regimen for her history of diabetes. The plan of care was discussed with patient and she verbalized understanding. On the day of discharge patient was in stable condition Discussed POC with Dr. Koch Letcher Meds Active Scripts Saccharomyces Boulardii* (Florastor*) 250 Mg Cap, 500 MG PO BID, #14 CAP Prov:ADRIENNEKATELYNJASPAL EllisROBBIE FROG OR [employer] 02/08/19 Ciprofloxacin Hcl* (Ciprofloxacin Hcl*) 500 Mg Tablet, 500 MG PO BID, #14 TAB Prov:ADRIENNEIDORROBBIE FROG OR [employer] 02/08/19 Metoprolol Tartrate* (Lopressor*) 50 Mg Tab, 50 MG PO BID, #60 TAB Prov:REGIDORROBBIE FROG OR [employer] 02/08/19 Losartan Potassium* (Cozaar*) 50 Mg Tablet, 50 MG PO DAILY, #30 TAB Prov:ADRIENNEIDORhondaROBBIE FROG OR [employer] 02/08/19 Digoxin* (Digitek*) 125 Mcg Tablet, 0.125 MG PO DAILY, #30 TAB Prov:ADRIENNEIDORROBBIE FROG OR [employer] 02/08/19 Furosemide* (Furosemide*) 40 Mg Tablet, 1 TAB ORAL DAILY, #30 TAB Prov:ADRIENNEKRISTOFERROBBIE FROG OR [employer] 02/08/19 Reported Medications Levothyroxine Sodium (Levo-T) 100 Mcg Tablet, 1 TAB ORAL DAILY 02/06/19 Gabapentin* (Gabapentin*) 100 Mg Capsule, 1 CAP ORAL DAILY 02/06/19 Warfarin Sodium (Warfarin Sodium) 3 Mg Tablet, 1 TAB ORAL DAILY 02/06/19 Glimepiride* (Glimepiride*) 2 Mg Tablet, 1 TAB ORAL DAILY 02/06/19 Collagenase* (Santyl*) 30 Gm Oint..gm., 1 APPLIC SUBDERMAL DAILY 02/06/19 Potassium Chloride* (Potassium Chloride*) 8 Meq Capsule.er, 8 MEQ PO DAILY, CAP 02/06/19 Discontinued Reported Medications Acetaminophen* (Acetaminophen*) 500 MG Extra Strength Tablet, 1000 MG PO BID PRN for PAIN, TAB 02/06/19 Clonazepam* (Clonazepam*) 0.5 Mg Tablet, 1 TAB ORAL QHS 02/06/19 Ammonium Lactate* (Lac-Hydrin* 12% (225gm)) 1 Applic Lotion, 1 APPLIC SUBDERMAL DAILY 02/06/19 Losartan Potassium* (Losartan Potassium*) 50 Mg Tablet, 1 TAB ORAL DAILY 02/06/19 Mupirocin* (Bactroban*) 2% -22 Gram Oint...g., 1 APPLIC SUBDERMAL DAILY 02/06/19 Metoprolol Tartrate* (Lopressor*) 50 Mg Tab, 1 TAB ORAL DAILY 02/06/19 Digoxin* (Digitek*) 125 Mcg Tablet, 1 TAB ORAL DAILY 02/06/19 Follow-up Plan 1. Follow up with Dr.Alex Wills in one week 2. Follow up with your vp public relations in one week. If you are not able to follow up with your vp public relations, follow up with Dr. Alden Sánchez in one week Office Address [address] [place] [address]. [address] [place] [address] Office Primary Care Provider Not On Staff Doctor Time spent on discharge: > 30 minutes ROBBIE VILLARREAL NP Feb 13, 2019 12:02
== END 2019-02-08 15:29 | disposition home health service (06) | DRG 149 ==
LOC: E/R 12:07 → TEL 14:54 → OBSVTOIN 02-07 17:01
PROVIDERS: ADMIT Internal Medicine; ATTEND Internal Medicine
DX: R42 Dizziness and giddiness (principal); I31.3 Pericardial effusion (noninflammatory); E11.42 Type 2 diabetes mellitus with diabetic polyneuropathy; I50.9 Heart failure, unspecified; I11.0 Hypertensive heart disease with heart failure; I48.91 Unspecified atrial fibrillation; L97.529 Non-pressure chronic ulcer of other part of left foot with unspecified severity; E11.9 Type 2 diabetes mellitus without complications; I25.10 Atherosclerotic heart disease of native coronary artery without angina pectoris; K59.00 Constipation, unspecified; K21.9 Gastro-esophageal reflux disease without esophagitis; Z79.84 Long term (current) use of oral hypoglycemic drugs; Z95.2 Presence of prosthetic heart valve; Z85.3 Personal history of malignant neoplasm of breast; Z85.820 Personal history of malignant melanoma of skin; Z79.01 Long term (current) use of anticoagulants
CPT/HCPCS: 11042; 36415; 70450; 71045; 74176; 80048; 80053; 80061; 80307; 81001; 82962; 83036; 83735; 83880; 84100; 84436; 84443; 84479; 84484; 85025; 85610; 85730; 87086; 93005; 93306; 93880; 96360; 97116; 97162; 97530; G0378; J0696; J1650; J7040